=== PATIENT | male | born 1965 | race Caucasian/White ===

== ENCOUNTER 2016-08-16 11:14 | Emergency (ER) | payer MEDICAID ==
[~2016-08-16] VITALS: Ht 172.7 cm; Wt 74.0 kg
[~2016-08-16 11:14] MED LIST: ESCI10TA PO; HYDR-3366 PO; IBUP400T20 PO; LITH300C2 PO; LITH300T3 PO; LORA-474 PO; LURA40 PO; OLAN10TA PO; VORT1TAB3 PO; ZYPR20TA PO
[2016-08-16 11:16] VITALS: BP 125/84; PULSE 102; RESP 20; TEMP 97.5; O2SAT 96
--- NOTE | 2016-08-16 12:07 | PD ---
HPI Chief Complaint: Psychiatric Symptoms Time Seen by Provider: 11:58 Travel History International Travel<30 days: No Contact w/Intl Traveler<30days: No Traveled to known affect area: No History of Present Illness HPI This is a 50-year-old male who presents voluntarily requesting psychiatric evaluation. He reports a long-standing history of depression, bipolar disorder. He reports that yesterday he took 30 pills of Lyrica 3 PM and is hem to kill himself. He reports that he slept all night and woke up today and was upset that he was still alive. He then took a knife and cut his right wrist superficially several times. He told his son that he was feeling suicidal and so his son drove him here. He reports that his psychiatrist is Dr. Farah he is currently prescribed with latuda, Wellbutrin, Ativan and lithium which he has been using as prescribed. He reports that there have been attempts by his psychiatrist to get him electric shock therapy however his insurance is currently denying this. He presumably denies any other ingestions besides the Lyrica 3 PM yesterday which was 21 hours ago. He denies any illicit drug or alcohol use. His last tetanus vaccination is unknown. He has no other complaints. PFSH Past Medical History Hx Anticoagulant Therapy: No Arthritis: Yes Blood Disorders: No Bipolar Disorder: Yes Anxiety: Yes Depression: Yes Cancer: No Cardiovascular Problems: No Chemotherapy: No Cerebrovascular Accident: No Diabetes: No Diminished Hearing: No Endocrine: No Gastrointestinal Disorders: No Genitourinary: No Headaches: No Immune Disorder: No Implanted Vascular Access Dvce: No Kidney Stones: Yes (LONG HX OF) Musculoskeletal: Yes Neurologic: No Psychiatric: Yes (Schizophrenia, Bipolar, Depression, Anxiety) Reproductive: No Respiratory: No Immunizations Current: No Schizophrenia: Yes (SCHIZOAFFECTIVE, PTSD) Seizures: No Thyroid Disease: No Past Surgical History Neurologic Surgery: No Oral Surgery: Yes (TEETH EXTRACTED) Other Surgery: Yes (HEMMORHOIDECTOMY) Social History Alcohol Use: Yes (a few a week) Tobacco Use: Yes (ONE PPD) Substance Use: No Allergies-Medications (Allergen,Severity, Reaction): Coded Allergies: No Known Allergies (Verified , 08/16/16) Reported Meds & Prescriptions Reported Meds & Active Scripts Active Latuda (Lurasidone) 40 Mg Tab 40 Mg PO WITH DINNER Escitalopram (Escitalopram Oxalate) 10 Mg Tab 10 Mg PO DAILY Reported Vernon (Hydrocodone-Acetaminophen) 10-325 Mg Tab 1 Tab PO Q4H PRN Zyprexa (Olanzapine) 20 Mg Tab 20 Mg PO HS Ativan (Lorazepam) 1 Mg Tab 1 Mg PO TID PRN Hornbeak Carbonate 300 Mg Cap 300 Mg PO TID Review of Systems Except as stated in HPI: all other systems reviewed are Neg Physical Exam Narrative GENERAL: This is a well-developed well-nourished male who is clearly depressed and tearful. SKIN: Warm and dry. Superficial linear abrasions noted to the volar right wrist. No full-thickness laceration. HEAD: Atraumatic. Normocephalic. EYES: Pupils equal and round. No scleral icterus. No injection or drainage. ENT: No nasal bleeding or discharge. Mucous membranes pink and moist. NECK: Trachea midline. No JVD. CARDIOVASCULAR: Regular rate and rhythm. No murmur appreciated. RESPIRATORY: No accessory muscle use. Clear to auscultation. Breath sounds equal bilaterally. GASTROINTESTINAL: Abdomen soft, non-tender, nondistended. Hepatic and splenic margins not palpable. MUSCULOSKELETAL: No obvious deformities. No clubbing. No cyanosis. No edema. NEUROLOGICAL: Awake and alert. No obvious cranial nerve deficits. Motor grossly within normal limits. Normal speech. PSYCHIATRIC: Depressed, tearful Data Data Last Documented VS Vital Signs Date Time Temp Pulse Resp B/P Pulse Ox O2 Delivery O2 Flow Rate FiO2 08/16/16 12:27 97.9 85 16 119/77 96 08/16/16 11:16 Room Air Orders Complete Blood Count With Diff (08/16/16 11:55) Psych Screen (08/16/16 11:55) Drug Screen, Random Urine (08/16/16 11:55) Alcohol (Ethanol) (08/16/16 11:55) Salicylates (Aspirin) (08/16/16 11:55) Tylenol (Acetaminophen) (08/16/16 11:55) Electrocardiogram (08/16/16 ) Hornbeak (Li) (08/16/16 12:00) ^ Sitter (08/16/16 12:43) Call Poison Control (08/16/16 13:11) Comprehensive Metabolic Panel (08/16/16 12:55) Diet Regular Basic (08/16/16 Lunch) Diet Regular Basic (08/16/16 Dinner) Labs Laboratory Tests Test 08/16/16 12:55 White Blood Count 7.8 TH/MM3 Red Blood Count 4.46 MIL/MM3 Hemoglobin 13.3 GM/DL Hematocrit 38.6 % Mean Corpuscular Volume 86.6 FL Mean Corpuscular Hemoglobin 29.7 PG Mean Corpuscular Hemoglobin 34.3 % Concent Red Cell Distribution Width 13.4 % Platelet Count 204 TH/MM3 Mean Platelet Volume 8.3 FL Neutrophils (%) (Auto) 60.3 % Lymphocytes (%) (Auto) 29.4 % Monocytes (%) (Auto) 7.8 % Eosinophils (%) (Auto) 1.6 % Basophils (%) (Auto) 0.9 % Neutrophils # (Auto) 4.7 TH/MM3 Lymphocytes # (Auto) 2.3 TH/MM3 Monocytes # (Auto) 0.6 TH/MM3 Eosinophils # (Auto) 0.1 TH/MM3 Basophils # (Auto) 0.1 TH/MM3 CBC Comment DIFF FINAL Differential Comment Sodium Level 140 MEQ/L Potassium Level 3.8 MEQ/L Chloride Level 107 MEQ/L Carbon Dioxide Level 24.8 MEQ/L Anion Gap 8 MEQ/L Blood Urea Nitrogen 13 MG/DL Creatinine 0.92 MG/DL Estimat Glomerular Filtration 87 ML/MIN Rate Random Glucose 92 MG/DL Calcium Level 8.7 MG/DL Total Bilirubin 0.2 MG/DL Aspartate Amino Transf 9 U/L (AST/SGOT) Alanine Aminotransferase 18 U/L (ALT/SGPT) Alkaline Phosphatase 44 U/L Total Protein 6.7 GM/DL Albumin 4.1 GM/DL Salicylates Level 6.6 MG/DL Urine Opiates Screen POS Acetaminophen Level LESS THAN 2.0 MCG/ML Urine Barbiturates Screen NEG Urine Amphetamines Screen NEG Urine Benzodiazepines Screen NEG Hornbeak Level 0.2 MEQ/L Urine Cocaine Screen NEG Urine Cannabinoids Screen NEG Ethyl Alcohol Level LESS THAN 3 MG/DL MDM Medical Decision Making Medical Screen Exam Complete: Yes Emergency Medical Condition: Yes Medical Record Reviewed: Yes Interpretation(s) EKG sinus rhythm Differential Diagnosis Substance abuse, medication overdose, major depressive disorder, acute psychosis , arrhythmia, respiratory depression Narrative Course 50-year-old male long-standing history of bipolar disorder and depression presents after allegedly ingesting 30 tablets of Lyrica yesterday at 3 PM which would have been approximately 21 hours ago. He slept all night and woke up this morning upset with used to live and so he cut his right wrist with a knife superficially several times. He now presents voluntarily for psychiatric evaluation. We will check an EKG, basic lab work, lithium level. Tetanus status updated. Mental health screening discussed with the patient. Psychiatric screen ordered. 1315: Discussed with poison control recommends 4 hour observation. Lab work is notable for a positive opiate screen. He is medically cleared for psychiatric disposition. Diagnosis Primary Impression: Medical clearance for psychiatric admission Leo Esteban Aug 16, 2016 12:07
[2016-08-16 12:27] VITALS: BP 119/77; PULSE 85; RESP 16; TEMP 97.9; O2SAT 96
[2016-08-16 13:16] LABS: AUTOMATED NEUTROPHIL # 4.7 TH/MM3 (1.8-7.7); BASOPHIL # 0.1 TH/MM3 (0-0.2); BASOPHIL % 0.9 % (0.0-2.0); EOSINOPHIL # 0.1 TH/MM3 (0-0.4); EOSINOPHIL % 1.6 % (0.0-4.0); HEMATOCRIT 38.6 % (39.0-51.0); HEMO FLAGS DIFF FINAL; LYMPH % 29.4 % (9.0-44.0); LYMPHOCYTE # 2.3 TH/MM3 (1.0-4.8); MEAN CELL VOLUME 86.6 FL (80.0-100.0); MEAN CORPUSCULAR HEMOGLOBIN 29.7 PG (27.0-34.0); MEAN CORPUSCULAR HGB CONC 34.3 % (32.0-36.0); MONO % 7.8 % (0.0-8.0); NEUT % 60.3 % (16.0-70.0); PLATELET COUNT 204 TH/MM3 (150-450); RED BLOOD COUNT 4.46 MIL/MM3 (4.50-5.90); RED CELL DISTRIBUTION WIDTH 13.4 % (11.6-17.2); WHITE BLOOD COUNT 7.8 TH/MM3 (4.0-11.0)
[2016-08-16 13:26] LABS: AMPHETAMINE, URINE NEG (NEG); BARBITURATES, URINE NEG (NEG); COCAINE, URINE NEG (NEG)
[2016-08-16 13:36] LABS: ALT (GPT) 18 U/L (12-78); ANION GAP 8 MEQ/L (5-15); AST (GOT) 9 U/L (15-37); BICARBONATE 24.8 MEQ/L (21.0-32.0); BLOOD UREA NITROGEN 13 MG/DL (7-18); CHLORIDE 107 MEQ/L (98-107); GLOMERULAR FILTRATION RATE 87 ML/MIN (>89); POTASSIUM 3.8 MEQ/L (3.5-5.1); SODIUM (NA) 140 MEQ/L (136-145)
[2016-08-16 13:39] LABS: ACETAMINOPHEN LESS THAN 2.0 MCG/ML (10.0-30.0); ALKALINE PHOSPHATASE 44 U/L (45-117); TOTAL BILIRUBIN ADULT 0.2 MG/DL (0.2-1.0)
[2016-08-16 14:00] VITALS: BP 117/72; TEMP 98.8; O2SAT 98
[2016-08-16 15:15] VITALS: BP 117/72; PULSE 81; RESP 18; TEMP 98.8; O2SAT 98
[2016-08-16 18:00] VITALS: BP 112/62; PULSE 75; RESP 18; TEMP 98.4; O2SAT 98
[2016-08-16 22:34] VITALS: BP_SYST 95; PULSE 90; RESP 18; O2SAT 97
[2016-08-17 03:42] VITALS: BP 101/54; PULSE 78; RESP 17; O2SAT 97
[2016-08-17 06:50] VITALS: BP 114/57; PULSE 72; RESP 18; O2SAT 97
[2016-08-17 10:00] VITALS: BP 123/75; PULSE 85; RESP 18
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
--- NOTE | 2016-08-18 07:08 | EKG ---
Date Performed: 08/16/2016 Time Performed: 01:06:15 PTAGE: 50 years EKG: Sinus rhythm NORMAL ECG NO PREVIOUS TRACING DOCTOR: Roman Beth Interpretating Date/Time 08/18/2016 07:07:30
== END 2016-08-17 13:39 | disposition home or self-care (01) ==
LOC: NEPB 11:14 → NEPJ 08-17 13:39
DX: F10.94 Alcohol use, unspecified with alcohol-induced mood disorder (principal); F31.9 Bipolar disorder, unspecified; F41.9 Anxiety disorder, unspecified; F41.8 Other specified anxiety disorders; F20.9 Schizophrenia, unspecified; F43.10 Post-traumatic stress disorder, unspecified; F17.210 Nicotine dependence, cigarettes, uncomplicated
CPT/HCPCS: 80053; 80178; 80307; 85025; 93005; 99284